=== PATIENT | female | born 2005 | race Caucasian/White ===

== ENCOUNTER 2025-04-22 16:17 | Emergency (ER) | payer OTHER, SELFPAY ==
[2025-04-22 16:21] VITALS: BP 143/91; PULSE 120; TEMP 37.4; O2SAT 97; BMI 42.0
--- NOTE | 2025-04-22 17:17 | PC.NURSE ---
pt states she was sitting in her swivel chair, turned and felt a shooting pain in lower back and into bilat legs.
--- NOTE | 2025-04-22 17:21 | ED.GENADUL1 ---
HPI HPI - General Adult General Chief complaint: Back Pain/Injury Stated complaint: LOWER BACK PAIN Time Seen by Provider: 04/22/25 16:40 Source: patient Mode of arrival: Wheelchair History of Present Illness HPI narrative: Patient is a 19yo female who presents to the emergency department with complaints of 2 weeks of low back pain. Patient denies trauma but states that it started 2 weeks ago when she was sitting in a computer chair and twisted to reach for something. She does have a history of low back pain and used to see a chiropractor before she moved here a year ago but couldn't get in with one here soon enough. She reports the pain is midline in her low back and constant. She states she will get shooting pain that travels all the way down her legs to her toes bilaterally, but is worse in the right leg. She has been taking Ibuprofen without relief of her pain, and the pain is worsening. She denies any bilateral lower extremity numbness, saddle anesthesia, or bowel or bladder incontinance. She states that she last had her period 2 weeks ago but does have a history of ovarian cysts. She is on oral contraceptive. Related Data Previous Rx's ?Medication ?Instructions ?Recorded ibuprofen 800 mg tablet 800 mg PO Q8H PRN pain #14 tabs 04/22/25 lidocaine 5 % topical patch 1 patch topical Q24H #15 ea 04/22/25 methocarbamol 500 mg tablet 500 mg PO BID #14 tabs 04/22/25 Allergies Allergy/AdvReac Type Severity Reaction Status Date / Time No Known Drug Allergies Allergy Verified 04/22/25 16:25 Review of Systems ROS Status of ROS 10 or more systems reviewed and unremarkable except as noted in history and below Musculoskeletal Reports: back pain PFSH PFSH Social History Little interest or pleasure in doing things: not at all Feeling down, depressed, or hopeless: not at all Exam Narrative Exam Narrative: General: The patient appears uncomfortable and in no apparent distress. Sitting up on the ED cart. Skin: Warm, dry, no pallor noted. There is no rash noted. Head: Normocephalic, atraumatic Eye: Normal conjunctiva, no drainage Ears, Nose, Mouth, and Throat: oral mucosa is moist. Nares patent. Cardiovascular: Regular Rate and Rhythm Respiratory: Patient is in no distress, no accessory muscle use, lungs are clear to auscultation, no wheezing, rales or rhonchi. Back: No ecchymosis or signs of trauma, midline lumbar tenderness with palpation, 5/5 lower extremity strength with sensation intact bilaterally, + Straight leg raise bilaterally GI: no tenderness to palpation, no masses appreciated. No rebound, guarding, or rigidity noted. Musculoskeletal: The patient has no evidence of calf tenderness, no pitting edema, symmetrical pulses noted bilaterally Neurological: A&O, normal speech Psychiatric: Cooperative Constitutional Vital Signs, click to edit/add: Last Vital Signs Temp 99.3 F 04/22/25 16:21 Pulse 94 H 04/22/25 18:47 Resp 16 04/22/25 20:08 BP 143/91 H 04/22/25 16:21 Pulse Ox 99 04/22/25 18:47 O2 Del Method Room Air 04/22/25 16:21 Course Vital Signs Vital signs: Vital Signs Temperature 99.3 F 04/22/25 16:21 Pulse Rate 120 H 04/22/25 16:21 Respiratory Rate 18 04/22/25 16:21 Blood Pressure 143/91 H 04/22/25 16:21 Pulse Oximetry 97 04/22/25 16:21 Oxygen Delivery Method Room Air 04/22/25 16:21 Temperature 99.3 F 04/22/25 16:21 Pulse Rate 94 H 04/22/25 18:47 Respiratory Rate 16 04/22/25 20:08 Blood Pressure 143/91 H 04/22/25 16:21 Pulse Oximetry 99 04/22/25 18:47 Oxygen Delivery Method Room Air 04/22/25 16:21 Medical Decision Making [facility] Narrative Medical decision making narrative: 19yr old female presents with 2 weeks of increasing low back pain with no history of trauma. She does have intermittent shooting pain from her low back down her legs to her toes but denies red flag symptoms. She is neurologically intact with 5/5 BLE strength. UA and Urine Hcg ordered and negative. HR initially tachy at 120, BP stable, non toxic appearing. Lumbar spine Xray ordered and Toradol IM and PO Robaxin ordered for pain. Low suspicion for kidney stone, patient denies hematuria, dysuria, urinary frequency or retention. Lumbar spine xray negative acute fracture or malalignment, some degenerative changes at L4-S1. Patient re-evaluated and pain is now controlled, HR improved to 94. I discussed xray results with her and questions were answered. I prescribed her IBU 800mg, Robaxin 500mg, and Lidocaine patches. Patient was discharged to home with follow up with her PCP, return to the ED for any new or worsening symptoms. Differential Diagnosis Differential Diagnosis: Acute on Chronic Back pain, Lumbar Radiculopathy, Kidney Stone, UTI Lab Data Labs: Lab Results 04/22/25 Range/Units 17:25 Urine Color Lt. yellow (YELLOW) Urine Clarity Clear (CLEAR) Urine pH 6.0 (5.0-9.0) Ur Specific Fleming >=1.030 A (1.005-1.025) Urine Protein Negative (NEG/TRACE) mg/dL Urine Glucose (UA) Negative (NEGATIVE) mg/dL Urine Ketones Negative (NEGATIVE) mg/dL Urine Occult Blood Negative (NEGATIVE) Urine Nitrite Negative (NEGATIVE) Urine Bilirubin Negative (NEGATIVE) Urine Urobilinogen 0.2 (0.2-1.0) EU/dL Ur Leukocyte Esterase Trace A (NEGATIVE) Urine RBC 0-2 (0-2) #/HPF Urine WBC 2-5 A (NONE SEEN) #/HPF Ur Squamous Epith Cells Rare (NONE/RARE) #/LPF Urine Crystals None seen (None Seen) #/HPF Urine Bacteria Small A (NONE SEEN) #/HPF Urine Casts None seen (NONE SEEN) #/LPF Urine Mucus Trace A (NONE SEEN) Ur Culture Indicated? Yes-[facility] [place] Urine HCG, Qual Negative (NEGATIVE) Discharge Plan Discharge Chief Complaint: Back Pain/Injury Clinical Impression: Lumbar radiculopathy Patient Disposition: Home, Self-Care Time of Disposition Decision: 19:43 Condition: Good Mode of Transportation: Private Vehicle Prescriptions / Home Meds: New ibuprofen 800 mg tablet 800 mg PO Q8H PRN (Reason: pain) Qty: 14 0RF methocarbamol 500 mg tablet 500 mg PO BID Qty: 14 0RF lidocaine 5 % adhesive patch,medicated 1 patch topical Q24H Qty: 15 0RF Rx Instructions: leave on most painful area for up to 12 hrs Print Language: French Referrals: Physician,Non-Staff, MD [Primary Care Provider] - 1 week Referral Note: Follow up with your Primary Nurse Practitioner as soon as possible for follow up. If symptoms worsen return to the ER. Discharge Date/Time: 04/22/25 20:09
[2025-04-22 17:38] LABS: Glucose Urine UA NEGATIVE (NEGATIVE)
[2025-04-22 17:40] LABS: HCG Qualitative Urine* NEGATIVE (NEGATIVE)
[2025-04-22 18:07] LABS: Cast Seen? NONE SEEN #/LPF (NONE SEEN); Crystals Seen? None Seen #/HPF (None Seen)
[2025-04-22 18:08] LABS: Urine Culture Indicated YES-FRMC
--- NOTE | 2025-04-22 18:09 | XR_ITS ---
[place] [address] Patient Name: TEZ RIVERA MRN: [id number] date: 2005 Sex: F Assigned Patient Location: ER Current Patient Location: ER Accession/Order Number: [id number] Exam Date: 04/22/2025 19:11 Report Date: 04/22/2025 19:13 At the request of: CORY DAVID Procedure: XR lumbar spine 2-3V 3 views lumbar spine INDICATION: Low back pain COMPARISON: None FINDINGS: Levocurvature parenchymal junction and mild dextrocurvature lower lumbar spine. Vertebral body heights maintained. Suspect minimal endplate spurring L4-5 and L5-S1. Otherwise negative acute fracture malalignment. XR/XR lumbar spine 2-3V IMPRESSION: Negative acute fracture or malalignment. Suspect minimal spurring L4-5 L5-S1. Impression dictated by: Raj Jean-Baptiste M.D. 04/22/2025 7:13 PM Dictation Location: [place] [address] Electronically authenticated by: [id number] Date: 04/22/2025 19:13
[2025-04-22] MEDS: KETOROLAC TROMETHAMINE 30 MG/ML VIAL IM (18:34)
[2025-04-22] MEDS: METHOCARBAMOL 500 MG TABLET PO (18:34)
[2025-04-22 18:47] VITALS: PULSE 94; O2SAT 99
== END 2025-04-22 20:09 | disposition home or self-care (01) ==
PROVIDERS: Physician Assistant; Emergency Provider Emergency Medicine
DX: M54.16 Radiculopathy, lumbar region (principal); M54.50 Low back pain, unspecified
CPT/HCPCS: 72100; 81001; 84703; 87086; 96372; 99285; J1885

== ENCOUNTER 2025-05-26 09:45 | Outpatient (RCR) | payer OTHER, SELFPAY | END 2025-06-26 11:02 | disposition home or self-care (01) | LOC: PT 09:45 | PROVIDERS: PCP Nurse Practitioner Family; Visit Provider Nurse Practitioner Family | DX: M54.16 Radiculopathy, lumbar region (principal) | CPT/HCPCS: 97110; 97112; 97162 ==